=== PATIENT | male | born 1985 | race Caucasian/White ===

== ENCOUNTER 2018-01-27 11:15 | Emergency (ER) | payer BC, OTHER ==
--- NOTE | 2018-01-27 12:16 | RAD REPORT ---
EXAM DESCRIPTION: RAD - Chest Pa And Lat (2 Views) - 01/27/2018 12:08 pm CLINICAL HISTORY: Chest pain COMPARISON: September 2010 TECHNIQUE: PA and lateral views of the chest were obtained. FINDINGS: The lungs are clear. Interstitial markings are similar to comparison. Heart size is nancy l and central vasculature is within normal limits. No pleural effusion or pneumothorax seen. No acu te bony finding noted. No aortic abnormality. IMPRESSION: No acute cardiopulmonary process. No significant interval change from prior imaging.
[2018-01-27 12:34] LABS: Urine Blood NEGATIVE (NEG); Urine Glucose NEGATIVE (NEG); Urine Protein NEGATIVE (NEG); Urine Specific Gravity 1.015 (1.005-1.030); Urine pH 7.5 (5.0-7.0)
[2018-01-27 12:40] LABS: Absolute Lymphocytes (CBC) 1.4 K/uL (0.7-4.9); Absolute Monocytes 0.6 K/uL (0.1-1.3); Basophils % 0.3 % (0-1.3); Eosinophils % 0.4 % (0-4.4); Hematocrit 44.7 % (39.6-49.0); Lymphocytes % 13.8 % (15.3-44.8); MCH 21.6 pg (27.0-35.0); MCV 67.4 fL (80-100); MPV 6.5 fL (7.6-11.3); Monocytes % 5.8 % (3.3-12.3); RBC Red Blood Cell Count 6.63 M/uL (4.33-5.43)
[2018-01-27 13:02] LABS: Albumin 4.1 g/dL (3.4-5.0); Bilirubin Direct 0.1 mg/dL (0-0.2); Bilirubin Total 0.4 mg/dL (0.2-1.0); CKMB Creatine Kinase MB 1.2 ng/mL (0.3-3.6); Magnesium 2.1 mg/dL (1.8-2.4); Potassium 4.1 mmol/L (3.5-5.1); Protein, Total 7.4 g/dL (6.4-8.2)
[2018-01-27 13:08] LABS: Protime INR 1.01
[2018-01-27] MEDS ORDERED: ASPIRIN 81 MG CHEWABLE TABLET ONE (14:22)
[2018-01-27] MEDS ORDERED: PANTOPRAZOLE 40 MG INJ ONE (14:23)
--- NOTE | 2018-01-27 14:42 | ER ---
Nurse's Notes [facility] Name: Lew Leigh Age: 32 yrs Sex: Male : 1985 Arrival Date: 01/27/2018 Time: 11:21 Bed 14 Private MD: Lazarus Rodriguez Diagnosis: Palpitations;Chest pain, unspecified Presentation: 01/27 11:25 Presenting complaint: Patient states: chest pressure x 2-3 days ago. Pt states "I woke aa5 up with my heart racing and sweating two nights in a row except for last night". Pt states "I've been having panic attacks". Pt denies SOB, denies cough. Pt states "my blood pressure was 160/100 this morning". 11:25 Transition of care: patient was not received from another setting of care. Onset of aa5 symptoms was January 2018. Risk Assessment: Do you want to hurt yourself or someone else? Patient reports no desire to harm self or others. Initial Sepsis Screen: Does the patient meet any 2 criteria? No. Patient's initial sepsis screen is negative. Does the patient have a suspected source of infection? No. Patient's initial sepsis screen is negative. Care prior to arrival: None. 11:25 Method Of Arrival: Ambulatory aa5 11:25 Acuity: POLI 3 aa5 Historical: - Home Meds: 11:28 losartan 50 mg oral tab 1 tab once daily [Active]; Prilosec Oral [Active]; Zyrtec Oral aa5 [Active]; testosterone IM weekly [Active]; - PMHx: 11:28 Hypertension; aa5 - Immunization history:: Adult Immunizations up to date. - Social history:: Smoking status: Patient/guardian denies using tobacco. - Ebola Screening: : No symptoms or risks identified at this time. Screenin:42 Abuse screen: Denies threats or abuse. Nutritional screening: No deficits noted. tw2 Tuberculosis screening: No symptoms or risk factors identified. Fall Risk None identified. Assessment: 11:30 General: Appears in no apparent distress. well groomed, Behavior is calm, cooperative, tw2 appropriate for age. Pain: Denies pain. Pain does not radiate. Pain began 2-3 days ago. Neuro: Level of Consciousness is awake, alert, obeys commands, Oriented to person, place, time, situation. Cardiovascular: Reports chest pressure/tightness Denies chest pain, Heart tones S1 S2 Capillary refill < 3 seconds Patient's skin is warm and dry. Respiratory: Airway is patent Respiratory effort is even, unlabored, Respiratory pattern is regular, symmetrical, Breath sounds are clear bilaterally. GI: Abdomen is flat, Bowel sounds present X 4 quads. : No signs and/or symptoms were reported regarding the genitourinary system. EENT: No signs and/or symptoms were reported regarding the EENT system. Derm: Skin is intact, is healthy with good turgor, Skin temperature is warm. Musculoskeletal: Range of motion: intact in all extremities. 12:39 Reassessment: Patient appears in no apparent distress at this time. No changes from tw2 previously documented assessment. Patient and/or family updated on plan of care and expected duration. Pain level reassessed. Patient is alert, oriented x 3, equal unlabored respirations, skin warm/dry/pink. 13:26 Reassessment: Patient appears in no apparent distress at this time. No changes from tw2 previously documented assessment. Patient and/or family updated on plan of care and expected duration. Pain level reassessed. Patient is alert, oriented x 3, equal unlabored respirations, skin warm/dry/pink. 14:41 Reassessment: Patient appears in no apparent distress at this time. No changes from tw2 previously documented assessment. Patient and/or family updated on plan of care and expected duration. Pain level reassessed. Patient is alert, oriented x 3, equal unlabored respirations, skin warm/dry/pink. Vital Signs: 11:28 BP 138 / 91; Pulse 104; Resp 18 S; Temp 99.4(O); Pulse Ox 98% on R/A; Weight 133.81 kg aa5 (R); Height 6 ft. 1 in. (185.42 cm) (R); Pain 2/10; 12:39 BP 124 / 78; Pulse 99; Resp 12; Pulse Ox 97% on R/A; tw2 13:26 BP 129 / 86; Pulse 89; Resp 17; Pulse Ox 98% on R/A; tw2 14:40 BP 123 / 82; Pulse 103; Resp 17; Pulse Ox 99% on R/A; tw2 11:28 Body Mass Index 38.92 (133.81 kg, 185.42 cm) [facility] ED Course: 11:21 Patient arrived in ED. jb7 11:21 Lazarus Rodriguez MD is Private Physician. jb7 11:25 Arm band placed on Patient placed in an exam room, on a stretcher. aa5 11:28 [facility] Burn[facility]C [facility] snw 11:28 Boyd Huff MD is Attending Physician. snw 11:29 Hallie Domingo, FLORENCIO is Primary Nurse. tw2 11:30 Placed in gown. Bed in low position. powder press operator on. Pulse ox on. NIBP on. tw2 11:30 Patient maintains SpO2 saturation greater than 95% on room air. tw2 11:36 Triage completed. aa5 11:41 EKG done, by tax examining technician. reviewed by Alejandra LARIOS. sm3 12:05 Chest Pa And Lat (2 Views) XRAY In Process Unspecified. EDMS 12:30 Inserted saline lock: 20 gauge in right antecubital area, using aseptic technique. tw2 ,using aseptic technique. per FLORENCIO Rojas Blood collected. 12:43 No provider procedures requiring assistance completed. tw2 13:01 Holter monitor was applied and patient was given instructions. at1 14:54 IV discontinued, intact, bleeding controlled, No redness/swelling at site. Pressure tw2 dressing applied. Administered Medications: 14:26 Drug: Aspirin 81 mg Route: PO; tw2 14:50 Follow up: Response: No adverse reaction tw2 14:26 Drug: ProTONIX 40 mg Route: IVP; Site: left antecubital; tw2 14:50 Follow up: Response: No adverse reaction tw2 Outcome: 14:42 Discharge ordered by . snw 14:54 Discharged to home ambulatory. tw2 14:54 Condition: stable 14:54 Discharge instructions given to patient, Instructed on discharge instructions, follow up and referral plans. medication usage, Demonstrated understanding of instructions, follow-up care, medications, Prescriptions given X 1. 14:55 Patient left the ED. tw2 Signatures: Dispatcher [employer] EDMS Alejandra Burnham FNP-C FNP-Lakshmi Vaughn RN RN aa5 Vianney martin, unmanned aircraft systems roboticist EKG Tat1 Hallie Domingo RN RN tw2 Dameon Renae jb7 Jill Peralta sm3 Corrections: (The following items were deleted from the chart) 11:38 11:25 Presenting complaint: Patient states: chest pressure x 2-3 days ago. Pt states "I aa5 woke up with my heart racing and sweating two nights in a row except for last night". Pt states "I've been having panic attacks". Pt denies SOB, denies cough. aa5
--- NOTE | 2018-01-27 14:42 | EDPHYS ---
Physician Documentation [facility] Name: Lew Leigh Age: 32 yrs Sex: Male : 1985 Arrival Date: 01/27/2018 Time: 11:21 Bed 14 Private MD: Lazarus Rodriguez ED Physician RajivBoyd shah HPI: 01/27 12:29 This 32 yrs old Male presents to ER via Ambulatory with complaints of Chest snw Tightness. 12:29 Onset: The symptoms/episode began/occurred suddenly, 2 day(s) ago, and improved this snw morning. Associated signs and symptoms: Pertinent positives: palpitations and sweating. Modifying factors: The patient symptoms are alleviated by nothing. The patient has not experienced similar symptoms in the past. The patient has not recently seen a physician, the patient's primary care provider is Dr. Dr. Rodriguez. pt states he has awoken x 2 with chest discomfort, racing, and sweating x 2 mornings. Pt attributes this to increased stress. Hx of HTN, pt takes Losartan. Historical: - Home Meds: 11:28 losartan 50 mg oral tab 1 tab once daily [Active]; Prilosec Oral [Active]; Zyrtec Oral aa5 [Active]; testosterone IM weekly [Active]; - PMHx: 11:28 Hypertension; aa5 - Immunization history:: Adult Immunizations up to date. - Social history:: Smoking status: Patient/guardian denies using tobacco. - Ebola Screening: : No symptoms or risks identified at this time. ROS: 12:29 Constitutional: Negative for fever, chills, and weight loss, Eyes: Negative for injury, snw pain, redness, and discharge, ENT: Negative for injury, pain, and discharge, Neck: Negative for injury, pain, and swelling, Respiratory: Negative for shortness of breath, cough, wheezing, and pleuritic chest pain, Abdomen/GI: Negative for abdominal pain, nausea, vomiting, diarrhea, and constipation, Back: Negative for injury and pain, : Negative for injury, bleeding, discharge, and swelling, MS/Extremity: Negative for injury and deformity, Skin: Negative for injury, rash, and discoloration, Neuro: Negative for headache, weakness, numbness, tingling, and seizure, Psych: Negative for depression, anxiety, suicide ideation, homicidal ideation, and hallucinations. 12:29 Cardiovascular: Positive for chest pain, palpitations, on awakening. Exam: 12:28 Constitutional: This is a well developed, well nourished patient who is awake, alert, snw and in no acute distress. Head/Face: Normocephalic, atraumatic. Eyes: Pupils equal round and reactive to light, extra-ocular motions intact. Lids and lashes normal. Conjunctiva and sclera are non-icteric and not injected. Cornea within normal limits. Periorbital areas with no swelling, redness, or edema. ENT: Nares patent. No nasal discharge, no septal abnormalities noted. Tympanic membranes are normal and external auditory canals are clear. Oropharynx with no redness, swelling, or masses, exudates, or evidence of obstruction, uvula midline. Mucous membranes moist. Neck: Trachea midline, no thyromegaly or masses palpated, and no cervical lymphadenopathy. Supple, full range of motion without nuchal rigidity, or vertebral point tenderness. No Meningismus. Chest/axilla: Normal chest wall appearance and motion. Nontender with no deformity. No lesions are appreciated. Respiratory: Lungs have equal breath sounds bilaterally, clear to auscultation and percussion. No rales, rhonchi or wheezes noted. No increased work of breathing, no retractions or nasal flaring. Abdomen/GI: Soft, non-tender, with normal bowel sounds. No distension or tympany. No guarding or rebound. No evidence of tenderness throughout. Back: No spinal tenderness. No costovertebral tenderness. Full range of motion. Skin: Warm, dry with normal turgor. Normal color with no rashes, no lesions, and no evidence of cellulitis. MS/ Extremity: Pulses equal, no cyanosis. Neurovascular intact. Full, normal range of motion. Neuro: Awake and alert, GCS 15, oriented to person, place, time, and situation. Cranial nerves II-XII grossly intact. Motor strength 5/5 in all extremities. Sensory grossly intact. Cerebellar exam normal. Normal gait. 12:28 Cardiovascular: Rate: tachycardic, Rhythm: regular, Pulses: no pulse deficits are appreciated, Heart sounds: normal, Edema: is not appreciated. Vital Signs: 11:28 BP 138 / 91; Pulse 104; Resp 18 S; Temp 99.4(O); Pulse Ox 98% on R/A; Weight 133.81 kg aa5 (R); Height 6 ft. 1 in. (185.42 cm) (R); Pain 2/10; 12:39 BP 124 / 78; Pulse 99; Resp 12; Pulse Ox 97% on R/A; tw2 13:26 BP 129 / 86; Pulse 89; Resp 17; Pulse Ox 98% on R/A; tw2 14:40 BP 123 / 82; Pulse 103; Resp 17; Pulse Ox 99% on R/A; tw2 11:28 Body Mass Index 38.92 (133.81 kg, 185.42 cm) aa5 MDM: 11:28 Patient medically screened. snw 14:49 Data reviewed: vital signs, nurses notes. Data interpreted: Pulse oximetry: on room air snw is 99 %. Interpretation: normal. Counseling: I had a detailed discussion with the patient and/or guardian regarding: the historical points, exam findings, and any diagnostic results supporting the discharge/admit diagnosis, the presence of at least one elevated blood pressure reading (>120/80) during this emergency department visit, lab results, radiology results, the need for outpatient follow up, to return to the emergency department if symptoms worsen or persist or if there are any questions or concerns that arise at home. Special discussion: Based on the patient's history, exam, and Dx evaluation, there is no indication for emergent intervention or inpatient Tx. It is understood by the patient/guardian that if the Sx's persist or worsen they need to return immediately for re-evaluation. I have referred the patient to see his PCP for further evaluation of high blood pressure. Based on the history and exam findings, there is no indication for further emergent testing or inpatient evaluation. I discussed with the patient/guardian the need to see the [facility] for further evaluation of the symptoms. I discussed with the patient/guardian the need to see the primary care provider for further evaluation of the symptoms. 01/27 11:53 Order name: Urine Dipstick--Ancillary (enter results); Complete Time: 12:37 bd 01/27 12:11 Order name: Basic Metabolic Panel snw 01/27 12:11 Order name: CBC with Diff snw 01/27 12:11 Order name: Ckmb snw 01/27 12:11 Order name: CPK; Complete Time: 13:21 snw 01/27 12:11 Order name: LFT's; Complete Time: 13:21 snw 01/27 12:11 Order name: Magnesium; Complete Time: 13:21 snw 01/27 12:11 Order name: PT-INR; Complete Time: 13:21 snw 01/27 12:11 Order name: Ptt, Activated; Complete Time: 13:21 snw 01/27 12:11 Order name: Troponin (emerg Dept Use Only); Complete Time: 13:21 snw 01/27 12:11 Order name: DD; Complete Time: 13:21 snw 01/27 12:12 Order name: Basic Metabolic Panel; Complete Time: 13:21 EDMS 01/27 12:12 Order name: CKMB Creatine Kinase MB; Complete Time: 13:21 EDMS 01/27 12:41 Order name: CBC Smear Scan EDMS 01/27 11:29 Order name: EKG; Complete Time: 11:29 snw 01/27 11:29 Order name: EKG - Nurse/Tech; Complete Time: 11:50 w 01/27 11:29 Order name: Chest Pa And Lat (2 Views) XRAY; Complete Time: 12:17 w 01/27 12:11 Order name: Cardiac monitoring; Complete Time: 12:38 w 01/27 12:11 Order name: IV Saline Lock; Complete Time: 12:38 w 01/27 12:11 Order name: Labs collected and sent; Complete Time: 12:38 w 01/27 12:11 Order name: O2 Per Protocol; Complete Time: 12:38 w 01/27 12:11 Order name: O2 Sat Monitoring; Complete Time: 12:38 w 01/27 12:11 Order name: Urine Dipstick-Ancillary (obtain specimen); Complete Time: 12:38 w 01/27 12:22 Order name: Holter Monitor (ORDER); Complete Time: 12:22 snw Administered Medications: 14:26 Drug: Aspirin 81 mg Route: PO; tw2 14:50 Follow up: Response: No adverse reaction tw2 14:26 Drug: ProTONIX 40 mg Route: IVP; Site: left antecubital; tw2 14:50 Follow up: Response: No adverse reaction tw2 Disposition: 17:00 Co-signature as Attending Physician, Boyd Huff MD I agree with the assessment and kdr plan of care. Disposition: 01/27/18 14:42 Discharged to Home. Impression: Palpitations, Chest pain, unspecified. - Condition is Stable. - Discharge Instructions: Nonspecific Chest Pain, Gastroesophageal Reflux Disease, Adult, Hypertension, Palpitations, Aspirin and Your Heart, Fat and Cholesterol Restricted Diet, [id number]. - Prescriptions for Protonix 40 mg Oral Tablet - take 1 tablet by ORAL route once daily; 30 tablet. - Medication Reconciliation Form, Thank You Letter, Antibiotic Education, Prescription Opioid Use, Work release form form. - Follow up: Private Physician; When: 1 - 2 days; Reason: Recheck today's complaints, Continuance of care, Re-evaluation by your physician. Follow up: Emergency Department; When: As needed; Reason: Worsening of condition. Signatures: Dispatcher [employer] EDIA Boyd Huff MD MD [facility] Alejandra Burnham, PRESS BOX CUSTODIAN-C PRESS BOX CUSTODIAN-Csnw Lakshmi Waldron RN RN aa5 Hallie Domingo RN RN tw2 Corrections: (The following items were deleted from the chart) 14:55 14:42 01/27/2018 14:42 Discharged to Home. Impression: Palpitations; Chest pain, tw2 unspecified. Condition is Stable. Forms are Work release form, Medication Reconciliation Form, Thank You Letter, Antibiotic Education, Prescription Opioid Use. Follow up: Private Physician; When: 1 - 2 days; Reason: Recheck today's complaints, Continuance of care, Re-evaluation by your physician. Follow up: Emergency Department; When: As needed; Reason: Worsening of condition. snw
[2018-01-27 15:09] LABS: Blood Morphology Comment NOTED (NOT SEEN); Hypochromasia 1+; Ovalocytes 1+; Platelet Estimate ADEQ; Urine White Blood Cell Casts OK
--- NOTE | 2018-01-28 10:43 | EKG ---
Test Date: 2018-01-27 Test Time: 11:41:53 Fuel Retrofitting Technician: [place] MEASUREMENT RESULTS: Intervals: Rate: 107 WV: 176 QRSD: 96 QT: 316 QTc: 421 [place]: P: 66 WV: 176 QRS: 21 T: 38 INTERPRETIVE STATEMENTS: Sinus tachycardia Otherwise normal ECG Compared to ECG 09/21/2010 16:13:01 Sinus rhythm no longer present Electronically Signed On 01-28-18 10:42:48 CDT by Neftali Gold
--- NOTE | 2018-01-28 15:49 | HM ---
Indications : Palpitaitons Diary Notations : Referring MD : Alejandra Burnham Medications: Isoartan, Zyrtec, Prilosec, Testosterone injesction Reading MD : Neftali Gold : Estrogen eri Summary Report Test Date : 01/27/2018 Start Time : 12:41 pm Total Beats : [id number] Hours Analyzed : 24:14:00 Unknown Beats : 0 Scan Date : 01/28/2018 Artifact : 0:17:43 Other Beats : 0 Percent AFIB : 0 Rate Dependent Events Heart Rates Min : 60 BPM at 4:51 am Bradycardia Runs: 4 Pauses : 0 Max : 121 BPM at 6:01 pm Longest : 4 beats at 4:49 am Longest : 0 secs Avg : 83 BPM Min rate : 45 BPM at 4:49 am at Ventricular Events Supraventricular Events Total Beats : 10 Couplets : 0 Total Beats : 3 Couplets : 0 Triplets : 0 Bigeminy Runs : 0 VTach Runs : 0 SVTach Runs : 0 Longest : 0 beats at 0 Longest : 0 beats at 0 Max Rate ; 0 BPM Max Rate : 0 BPM at Impressions and Findings Sinus rhythm rate 60-121 beats per minute with no pauses. Rare of premature ventricular complexes. Rare of premature atrial complexes. No ventricular tachycardia. No supraventricular tachycardia. No atrial fibrillation.
== END 2018-01-27 14:55 | disposition home or self-care (01) ==
LOC: ER 11:15
DX: R00.2 Palpitations (principal); I10 Essential (primary) hypertension
CPT/HCPCS: 36415; 71046; 80048; 80076; 81003; 82550; 82553; 83735; 84484; 85025; 85379; 85610; 85730; 93005; 93225; 93226; 96374; 99285; C9113